=== PATIENT | male | born 1950 | race Caucasian/White ===

== ENCOUNTER 2017-07-04 19:07 | Emergency (ER) | payer MEDICARE, OTHER ==
[2015-03-31 18:11] VITALS: BMI 26.9
[~2017-07-04 19:07] MED LIST: ASPIRIN325 MG PO; ATACAND16 MG PO; DEXILANT60 MG PO; GLUCOPHAGE500 MG PO; HYDROCHLOROTHIA25 MG PO; IMDUR30 MG PO; LANTUS INSULIN10 ML SC; LIPITOR80 MG PO; SORINE80 MG PO
== END 2017-07-04 21:18 | disposition left against medical advice (07) ==
LOC: D.ER 19:07
DX: I10 Essential (primary) hypertension (principal)

== ENCOUNTER 2017-07-13 10:43 | Outpatient (CLI) | payer MEDICARE, OTHER ==
[~2017-07-13] VITALS: Ht 185.4 cm; Wt 94.1 kg
--- NOTE | ~2017-07-13 | HEMODYNAMI ---
PATIENT:OSMANY GALVEZ MEDICAL RECORD: [id number] : 48 LOCATION:[facility] ADMISSION DATE: 07/13/17 Generatedon:07/13/201713:55 Patient name: OSMANY GALVEZ Patient #: [id number] SSN: DO B: 1950 Date of study: 07/13/2017 Page: Of Hemodynamic Procedure Report Patient Data Patient Demographics Procedure consent was obtained First Name: OSMANY Gender: Male Last Name: LEONOR : 1950 [facility] Initial: C Age: 67 year(s) Patient #: [id number] Race: Unknown Additional ID: [id number] Contact details Address: [address] [place] [address] State: [place] City: [place] Zip code: [address] Admission Admission Data Admission Date: 07/13/2017 Admission Time: 10:43 Arrival Date: 07/13/2017 Arrival Time: 13:00 Admit Source: Other Insurance Payor: Medicare Height (in.): 73 BSA: 2.2 (m2) Height (cm.): 185.42 BMI: 27.84 (kg/m2) Weight (lbs.): 211 Weight (kg.): 95.71 Procedure Procedure Types Cath Procedure Diagnostic Procedure LHC LHC w/Coronaries w/Grafts PCI Procedure Coronary Stent Coronary Stent Initial Miscellaneous Procedures Moderate Sedation up to 30 minutes Procedure Description Procedure Date Procedure Date: 07/13/2017 Procedure Start Time: 13:27 Procedure End Time: 13:50 Procedure Staff Name Function Sánchez Zuniga MD Performing Physician Olivia Alatorre RT Monitor Shellie Mcintyre RT Scrub Isaac Wong RN Nurse Procedure Data Cath Procedure Fluoroscopy Diagnostic fluoroscopy Total fluoroscopy Time: 4.9 time: 4.9 min min Diagnostic fluoroscopy Total fluoroscopy dose: dose: 1101 mGy 1101 mGy Contrast Material Contrast Material Type Amount (ml) Isovue 300 123 Entry Location Entry Primary Successful Side Size Upsize Upsize Entry Closure Succes sful Closure Location (Fr) 1 (Fr) 2 (Fr) Remarks Device Remarks Femoral Right 5 Fr 6 Fr Exoseal artery Short Estimated blood loss: 5 ml Diagnostic catheters Device Type Used For End Catheter Placement MULTIPACK JL 4.0 5Fr Left Coronary catheter Angiography MULTIPACK 3DRC 5Fr Multi-vessel catheter Angiography MULTIPACK Pigtail 5 Fr LV Angiography catheter Procedure Complications No complications Procedure Medications Medication Administration Route Dosage 0.9% NaCl I.V. 100 ml/hr Oxygen NC 2 l/min Heparin Flush Bag added to field 2 bags (1000units/500ml NS) Lidocaine 2% added to field 20 Benadryl I.V. 50 mg Versed I.V. 1 mg Fentanyl I.V. 50 mcg Fentanyl I.V. 50 mcg Versed I.V. 1 mg Heparin Bolus I.V. 5000 units Integrilin (Bolus I.V. 8.5 ml 2mg/ml) Integrilin (Bolus wasted 1.5 ml 2mg/ml) Brilinta P.O. 180 mg Hemodynamics Rest BSA: 2.2 (m2) O2 Consumption: Estimated: 245.08 (ml/min) O2 Consumption indexed: Estimated:111.4 (ml/min/m) Heart Rate: 58 (bpm) Pressure Samples Time Site Value (mmHg) Purpose Heart Use Rate(bpm) 13:34 LV 122/5,17 Snapshot 65 Gradients Valve Time Site Site Mean SEP/DFP Peak To Heart Use 1 2 (mmHg) (sec/min) Peak Rate (mmHg) (bpm) Aortic 13:34 LV AO 65 Snapshots Pre Cath Intra NCS Post Cath Vital Signs Time Heart Resp SPO2 etCO2 NIBP (mmHg) Rhythm Pain Sedation Rate (ipm) (%) (mmHg) Status Level (bpm) 13:15:38 57 18 98 37.1 184/95(167) NSR 0 (11) 10(A) , No pain 13:20:28 54 18 100 31.8 175/88(149) NSR 0 (11) 10(A) , No pain 13:25:52 54 16 98 38.6 152/88(110) NSR 0 (11) 10(A) , No pain 13:30:29 55 19 99 0 132/89(123) NSR 0 (11) 10(A) , No pain 13:35:11 65 18 97 40.9 143/74(101) NSR 0 (11) 9(A) , No pain 13:39:54 63 19 98 40.9 135/75(110) NSR 0 (11) 9(A) , No pain 13:44:37 67 14 98 10.6 131/80(114) NSR 0 (11) 10(A) , No pain 13:49:36 67 12 99 38.6 Measuring NSR 0 (11) 10(A) , No pain 13:50:10 66 12 99 31.1 160/81(128) NSR 0 (11) 10(A) , No pain Medications Time Medication Route Dose Verified Delivered Reason Notes Effectiveness by by 13:21:21 0.9% NaCl I.V. 100 Isaac Isaac Per physician ml/hr Judith Wong RN RN 13:21:32 Oxygen NC 2 Isaac Isaac Per physician l/min Judith Wong RN RN 13:21:47 Heparin Flush added 2 Isaac Isaac used for Bag to bags Judith Wong procedure (1000units/500ml field WALL RN NS) 13:22:04 Lidocaine 2% added 20ml Isaac Isaac for local to vial Lorblanche Wong anesthetic RN RN 13:22:14 Benadryl I.V. 50 mg Isaac Isaac Per physician Judith Wong RN RN 13:24:54 Versed I.V. 1 mg Isaac Isaac for sedation Judith Wong RN RN 13:25:03 Fentanyl I.V. 50 Isaac Isaac for sedation mcg Judith Wong RN RN 13:28:18 Fentanyl I.V. 50 Isaac Isaac for sedation mcg Judith Wong RN RN 13:28:26 Versed I.V. 1 mg Isaac Isaac for sedation Judith Wong RN RN 13:38:50 Heparin Bolus I.V. 5000 Isaac Isaac for units Judith Wong anticoagulation RN RN 13:39:05 Integrilin I.V. 8.5 Isaac Isaac for (Bolus 2mg/ml) ml Judith Wong antiplatelet RN RN therapy 13:39:19 Integrilin wasted 1.5 Isaac Isaac to sharp's (Bolus 2mg/ml) ml Judith Wong RN RN 13:46:55 Brilinta P.O. 180 Isaac Isaac for mg Judith Wong antiplatelet RN RN therapy Procedure Log Time Note 12:56:55 Shellie Counts RT(R) sent for patient. Start room use. 12:56:55 Time tracking: Regular hours 12:56:59 Plan of Care:Hemodynamics will remain stable., Cardiac rhythm will remain stable., Comfort level will be maintained., Respiratory function will remain adequate., Patient/ family verbilizes understanding of procedure., Procedure tolerated without complication., Recovers from procedure without complications.. 12:57:35 Procedure type changed to Cath procedure, Diagnostic procedure, LHC, LHC w/Coronaries w/Grafts, PCI procedure, Coronary Stent, Coronary Stent Initial, Miscellaneous Procedures, Moderate Sedation up to 30 minutes 13:08:34 Diagnostic Cath Status : Elective 13:09:30 Admit Source: Other 13:09:33 Patient Height : 73 inches 13:09:42 Patient Weight : 211 lbs 13:09:42 Insurance Payor : Medicare 13:09:49 Arrival Date: 07/13/2017 1:00:00 PM 13:10:06 Patient received from Pre/Post Procedure Room to CCL 1 Alert and oriented. Tansferred to table in Supine position. 13:10:07 Warm blankets applied, and mariza hugger turned on for patient comfort. 13:10:08 Correct patient and procedure confirmed by team. 13:10:09 Signed procedure consent form obtained from patient. 13:13:56 ECG and BP/O2 sat monitors applied to patient. 13:13:57 Vital chart was started 13:16:50 Baseline sample Acquired. 13:16:58 Full Disclosure recording started 13:17:49 H&P Date Dictated: 07/10/2017 Within 30 days and on chart., H&P Addendum completed by physician on day of procedure. (MUST COMPLETE FOR ALL OUTPATIENTS). 13:17:51 Pre-procedure instructions explained to patient. 13:17:51 Pre-op teaching completed and patient verbalized understanding. 13:17:52 Family in waiting room. 13:17:54 Patient NPO since Midnight. 13:18:04 Is the patient allergic to Iodine/contrast media? No. 13:18:07 Was the patient premedicated? No 13:18:09 Is patient on blood thinner?No 13:18:11 Patient diabetic? Yes. 13:18:12 If diabetic: On Metformin? Yes 13:20:34 If on Metformin: Last Dose? 07/11/2017 13:20:37 Previous problem with sedation/anesthesia? No ? 13:20:40 Snore? No 13:20:40 Sleep apnea? No 13:20:41 Deviated septum? No 13:20:42 Opens mouth fully? Yes 13:20:43 Sticks out tongue? Yes 13:20:44 Airway obstruction? No ? 13:20:49 Dentures? Yes out 13:20:52 Pre procedure: right dorsailis pedis pulse 2+ Normal; easily identifiable; not easily obliterated 13:20:55 Pre procedure: left dorsailis pedis pulse 2+ Normal; easily identifiable; not easily obliterated 13:20:57 Patient pain scale 0/10 ?. 13:21:04 IV patent on arrival in left forearm with 0.9% NaCl at [facility]. 13:21:08 Lab results completed and on chart. 13:21:12 Right groin area was prepped with chlora-prep and draped in sterile fashion 13:21:13 Alarms reviewed by R. N. 13:21:14 Sharps counted by scrub and verified by R.N. 13:21:16 Physician arrived 13:21:16 --------ALL STOP TIME OUT------ 13:21:16 Final Timeout: patient, procedure, and site verified with staff and physician. All members of the team are in agreement. 13:21:18 Right groin site verified by team. 13:21:20 Physical assessment completed. ASA score P 2 - A patient with mild systemic disease as per Sánchez Zuniga MD. 13:21:21 0.9% NaCl 100 ml/hr I.V. was administered by Isaac Wong RN; Per physician; 13:21:24 Sedation plan: IV Moderate Sedation Medication:Versed, Fentanyl 13:21:32 Oxygen 2 l/min NC was administered by Isaac Wong RN; Per physician; 13:21:36 Use device set Femoral Dx 13:21:37 ACIST Syringe (19576) opened to sterile field. 13:21:38 Bag Decanter (2002S) opened to sterile field. 13:21:38 Medline Cath Pack ([id number]) opened to sterile field. 13:21:39 SHEATH 5FR [place] (KTL176) opened to sterile field. 13:21:39 DIAGNOSTIC WIRE .035 260cm J wire (773149) opened to sterile field. 13:21:40 ACIST Hand Control (90403) opened to sterile field. 13:21:41 ACIST Manifold (38727) opened to sterile field. 13:21:41 DIAGNOSTIC Multipack 5Fr catheter set (HK9062) opened to sterile field. 13:21:42 Tegaderm 4 x 4 (1626W) opened to sterile field. 13:21:47 Heparin Flush Bag (1000units/500ml NS) 2 bags added to field was administered by Isaac Wong RN; used for procedure; 13:22:04 Lidocaine 2% 20ml vial added to field was administered by Isaac Wong RN; for local anesthetic; 13:22:14 Benadryl 50 mg I.V. was administered by Isaac Wong RN; Per physician; 13:24:54 Versed 1 mg I.V. was administered by Isaac Wong RN; for sedation; 13:24:57 Zero performed for pressure channel P1 13:25:03 Fentanyl 50 mcg I.V. was administered by Isaac Wong RN; for sedation; 13:27:54 Procedure started. 13:27:57 Local anesthetic to right femoral artery with Lidocaine 2% by Sánchez Zuniga MD.INITIAL ACCESS ONLY 13:28:07 A 5 Fr sheath was inserted into the Right Femoral artery 13:28:18 Fentanyl 50 mcg I.V. was administered by Isaac Wong RN; for sedation; 13:28:26 Versed 1 mg I.V. was administered by Isaac Wong RN; for sedation; 13:28:43 A MULTIPACK JL 4.0 5Fr catheter was advanced over the wire and used for Left Coronary Angiography. 13:28:52 Baseline sample Acquired. 13:29:17 LCA angiography performed. 13:29:20 Injector settings: Ml/sec: 3, Volume: 6, 13:31:14 Catheter removed. 13:31:19 A MULTIPACK 3DRC 5Fr catheter was advanced over the wire and used for Multi-vessel Angiography. 13:31:42 RCA angiography performed. 13:32:11 SVG to RCA angiography performed. 13:32:51 SCOTT angiography performed. 13:33:59 Catheter removed. 13:34:19 A MULTIPACK Pigtail 5 Fr catheter was advanced over the wire and used for LV Angiography. 13:34:30 LV hemodynamics recorded. 13:34:31 LV gram done using REDDY 13:34:34 Injector settings: Ml/sec: 5, Volume: 15, 13:34:47 EF : 50 % 13:34:52 Catheter removed. 13:34:53 Proceeding to intervention. 13:35:19 WHISPER 300cm guide wire ([id number]) opened to sterile field. 13:35:20 INFLATOR Merit BasixCompak (QH0483) opened to sterile field. 13:35:20 SHEATH 6FR [place] (IMY416) opened to sterile field. 13:35:29 Sheath upsized to a 6 Fr Short. 13:37:15 GUIDE 6FR EBU 3.5 catheter ([id number]) opened to sterile field. 13:37:44 6 Fr ebu 3.5 guide catheter was inserted over the wire 13:38:50 Heparin Bolus 5000 units I.V. was administered by Isaac Wong RN; for anticoagulation; 13:39:05 Integrilin (Bolus 2mg/ml) 8.5 ml I.V. was administered by Isaac Wong RN; for antiplatelet therapy; 13:39:19 Integrilin (Bolus 2mg/ml) 1.5 ml wasted was administered by Isaac Wong RN; to sharp's; 13:39:49 whisper wire advanced. 13:39:55 Wire advanced across lesion. 13:41:07 Inflation Number: 1 A YADIEL OTW 3.0 x 15 stent ([id number]) was prepped and advanced across the Mid CX. The stent was deployed at 12 TONI for 0:30 (min:sec). 13:41:24 Stent catheter was removed intact over wire. 13:44:00 Inflation Number: 2 A YADIEL OTW 3.0 x 12 stent ([id number]) was prepped and advanced across the Mid CX. The stent was deployed at 14 TONI for 0:30 (min:sec). 13:45:14 Inflation number: 1 The stent balloon was then re-inflated across the Dist CX to 6 TONI for 0:30 (min:sec). 13:46:49 Stent catheter was removed intact over wire. 13:46:50 Wire removed. 13:46:50 Guide catheter removed. 13:46:55 Brilinta 180 mg P.O. was administered by Isaac Wong RN; for antiplatelet therapy; 13:47:52 EXOSEAL 6Fr (EX600) opened to sterile field. 13:48:03 Sheath removed intact; hemostasis achieved with Exoseal to the Right Femoral artery. 13:48:06 Procedure ended.(Physican Out) 13:48:41 Fluoroscopy time 04.90 minutes. 13:48:48 Fluoroscopy dose: 1101 mGy 13:48:48 Flurop Dose total: 1101 13:48:56 Contrast amount:Isovue 300 123ml. 13:48:58 Sharps counted by scrub and verified by R.N. 13:49:03 Insertion/operative site no bleeding no hematoma. 13:49:20 Post-op/insertion site Right Femoral artery dressed using a 4 x 4 and Tegaderm. 13:49:23 Post Procedure Pulses reassessed and unchanged 13:49:28 Post procedure rhythm: unchanged. 13:49:30 Estimated blood loss: 5 ml 13:49:35 Post procedure instruction explained to patient.Patient verbalizes understanding. 13:49:36 Patient needs reinforcement of post procedure teaching. 13:49:40 Procedure and supply charges have been captured, reviewed, submitted and are correct. 13:49:45 Procedure Complication : No complications 13:49:48 Vital chart was stopped 13:50:18 See physician's report for complete and final results. 13:50:49 Report given to Pre/Post Procedure Room. 13:50:52 Patient transfered to Pre/Post Procedure Room with Stretcher. 13:50:54 Procedure ended. 13:50:54 Full Disclosure recording stopped 13:51:04 ACC-PCI Only Patient was given prescriptions, or instructed by Sánchez Zuniga MD to start/continue the following medications upon discharge: Plavix 13:51:46 End room use (Document Last) Intervention Summary Intervention Notes Time ActionType Lesion and Equipment Action# Pressure Duration Attributes Used 13:41:07 Place stent Mid CX YADIEL OTW 3.0 1 12 00:30 x 15 stent ([id number]) 13:44:00 Place stent Mid CX YADIEL OTW 3.0 2 14 00:30 x 12 stent ([id number]) 13:45:14 Reinflate Dist CX YADIEL OTW 3.0 1 6 00:30 stent x 12 stent balloon ([id number]) Device Usage Item Name Manufacture Quantity Catalog Hospital Part Current Minim al Lot# / Number Charge Number Stock Stock Serial# Code ACIST Syringe Acist 1 83403 377239 502526 078538 20 (42239) Medical Systems Inc Bag Decanter Microtek 1 2001S 495328 44793 113408 5 () Medical Inc. Medline Cath Cardinal 1 [id number] 627586 84939 360601 5 Pack Health ([id number]) SHEATH 5FR Terumo 1 EMY918 612249 708858 511345 40 [place] (NWZ910) DIAGNOSTIC St Basilio 1 555846 939843 607214 005786 30 WIRE .035 260cm J wire (521225) ACIST Hand Acist 1 61409 887901 027744 773274 5 Control Medical (38182) Systems Inc ACIST Acist 1 99713 261779 289314 997747 5 Manifold Medical (60634) Systems Inc DIAGNOSTIC Cardinal 1 AB4376 421506 19494 092893 30 Multipack 5Fr Health catheter set (MI1194) Tegaderm 4 x 3M 1 1626W 363412 441729 073521 5 4 (1626W) MULTIPACK JL Cardinal 1 957454 5 4.0 5Fr Health catheter MULTIPACK Cardinal 1 712486 5 3DRC 5Fr Health catheter MULTIPACK Cardinal 1 227930 5 Pigtail 5 Fr Health catheter WHISPER 300cm Ramirez 1 [id number] 845642 210831 808386 5 guide wire Vascular ([id number]) INFLATOR Merit 1 AR3268 532621 496918 383859 15 Pikimal Medical BasixCompak (HF5163) SHEATH 6FR Terumo 1 XMC273 224782 324543 542430 40 [place] (TOP246) GUIDE 6FR EBU Medtronic 1 [id number] 587486 47604 242618 3 3.5 catheter (UV3XVN81) YADIEL OTW 3.0 Medtronic 1 [id number] 183676 394410 990897 5 [id number] x 15 stent ([id number]) YADIEL OTW 3.0 Medtronic 1 [id number] 909707 948486 763333 5 [id number] x 12 stent ([id number]) EXOSEAL 6Fr Cardinal 1 EX600 303859 659852 520590 10 (EX600) Health Signature Audit [place] Stage Time Signature Unsigned Intra-Procedure 07/13/2017 Olivia Alatorre 1:55:15 PM RT(R) Signatures Monitor : Olivia Alatorre RT Signature : Date : Time : [id number] [place] [address]
--- NOTE | ~2017-07-13 | OP ---
PATIENT NAME: OSMANY GALVEZ MEDICAL RECORD: [id number] :48 LOCATION:[facility] ADMISSION DATE: SURGEON: DANIEL COOPER MD DATE OF OPERATION: 07/13/2017 PROCEDURE: Left heart catheterization, selective coronary angiography, right femoral artery approach. CATHETERS: A 5-Tajik sheath, 5/4 left and right Adarsh, 5/4 pig. The procedure was well tolerated. The patient returned to the moore, sheath removed. ExoSeal device placed. Left ventriculography in 30-degree REDDY view: Normal wall motion, normal systolic function. CORONARY ANATOMY: 1. LEFT MAIN: Left main is free of disease. 2. LAD: Fills for a short period of time then is totally occluded. 3. CIRCUMFLEX: Area of previous stenting distally has about 80% stenosis more proximally before the takeoff of the AV groove. Circumflex has a new 80% stenosis. 4. RIGHT CORONARY ARTERY: Totally occluded in its midportion. BYPASS GRAFTS: 1. SCOTT to LAD widely patent throughout its course without evidence of post-anastomotic stenosis. 2. Saphenous vein graft to the right is widely patent throughout its course without evidence of in-stent restenosis, post-anastomotic stenosis. PLAN: Intervention of circumflex momentarily. DESCRIPTION OF PROCEDURE: A 5-Tajik sheath was exchanged for a 6-Tajik sheath. EBU 3.5 guiding catheter, good guide catheter support followed by a 300 cm Whisper wire was placed across both areas in the circumflex down the distal portion of vessel. Initial stent deployed distally was 3.0 x 15 mm [place] drug-eluting stent, proximally 3.0 x 12 mm [place] drug-eluting stent was placed, inflated to 14 atmospheres. Final angiography shows excellent resolution of both 80% lesions, no significant residual. SVETLANA flow was 3 throughout the procedure. Brilinta was loaded in the lab. Sheath was closed with ExoSeal device. TRANSINT:[id number] Voice Confirmation ID: [id number] DOCUMENT ID: [id number] DANIEL COOPER MD at 1347 CC: [id number] DICTATION DATE: 07/13/17 1358 BOOTMAKER: 07/13/17 1451 DEP CLI 07/13/17 [place] [address]
[2017-07-13] MEDS ORDERED: OMEPRAZOLE20 M1 PO (11:02)
[2017-07-13] MEDS ORDERED: CARDURA4 MG PO (11:03)
[2017-07-13 11:20] VITALS: Ht 185.4 cm; Wt 94.1 kg
[2017-07-13 11:28] LABS: BASOPHILS 0.6 % (0-2); EOSINOPHILS 1.8 % (0-7); HEMATOCRIT 41.9 % (42.0-54.0); HEMOGLOBIN 14.5 g/dL (13.5-17.5); IMMATURE GRANULOCYTES 0.4 % (0-5); LYMPHOCYTES 25.2 % (15-50); MCH 30.5 pg (26.0-34.0); MCHC 34.6 g/dL (31.0-37.0); MCV 88.2 fL (80.0-100.0); MONOCYTES 9.5 % (2-11); NEUTROPHILS 62.5 % (40-80); PLATELET COUNT 139 10x3/uL (130-400); RBC 4.75 10x6/uL (4.20-6.10); RDW 13.1 % (11.5-14.5); WBC 7.2 10x3/uL (4.8-10.8)
[2017-07-13 11:36] LABS: ANION GAP 11.1 mmol/L (8-16); CALCIUM 8.5 mg/dL (8.5-10.1); CARBON DIOXIDE 29.5 mmol/L (21.0-32.0); CREATININE - SERUM 1.3 mg/dL (0.6-1.3); POTASSIUM - SERUM 4.6 mmol/L (3.5-5.1)
[2017-07-13] MEDS ORDERED: BRILINTA90 MG PO (13:59)
[2017-07-13] MEDS ORDERED: PLAVIX75 MG PO (15:17)
== END 2017-07-13 17:55 | disposition home or self-care (01) ==
LOC: D.CATH 10:43
PROVIDERS: Internal Medicine Interventional Cardiology
DX: I25.119 Atherosclerotic heart disease of native coronary artery with unspecified angina pectoris (principal); Z95.1 Presence of aortocoronary bypass graft; Z01.812 Encounter for preprocedural laboratory examination
CPT/HCPCS: 93459; C9600

== ENCOUNTER 2018-08-12 05:34 | Observation (INO) | payer MEDICARE, BC ==
[~2018-08-12] VITALS: Ht 185.4 cm; Wt 92.7 kg
[2018-08-12] VITALS (7 sets, daily range): BP systolic 133–192; BP diastolic 74–94; Ht 185.4 cm; Wt 92.7 kg
--- NOTE | ~2018-08-12 | HEMODYNAMI ---
PATIENT:OSMANY GALVEZ MEDICAL RECORD: [id number] : 48 LOCATION:[address]# [id number] ADMISSION DATE: 08/12/18 Generatedon:08/12/201811:04 Patient name: OSMANY GALVEZ Patient #: [id number] SSN: DO B: 1950 Date of study: 08/12/2018 Page: Of Hemodynamic Procedure Report Patient Data Patient Demographics Procedure consent was obtained First Name: OSMANY Gender: Male Last Name: LEONOR : 1950 Middle Initial: C Age: 68 year(s) Patient #: [id number] Race: Unknown Additional ID: [id number] Contact details Address: [address] [place] [address] State: [place] City: [place] Zip code: [address] Admission Admission Data Admission Date: 08/12/2018 Admission Time: 7:34 Room #: D.2112 Lab Results Lab Result Date: 08/12/2018 Lab Result Time: 0:00 Biochemistry Name Units Result Min Max BUN mg/dl 17 --(---*)-- 7 18 Creatinine mg/dl 1.3 --(---*)-- 0.6 1.3 CBC Name Units Result Min Max Hemoglobin g/dl 13.5 --(*---)-- 13.5 17.5 Procedure Procedure Types Cath Procedure Diagnostic Procedure LHC LHC w/Coronaries w/Grafts Sedation Charges Moderate Sedation up to 30 minutes PCI Procedure Coronary Stent Coronary Stent Initial Procedure Description Procedure Date Procedure Date: 08/12/2018 Procedure Start Time: 10:21 Procedure End Time: 11:00 Procedure Staff Name Function Tj Meneses MD Performing Physician Shantell Erwin RT Monitor Olivia Alatorre RT Scrub Michelle Lewis RN Nurse Procedure Data Cath Procedure Fluoroscopy Diagnostic fluoroscopy Total fluoroscopy Time: 7.4 time: 7.4 min min Diagnostic fluoroscopy Total fluoroscopy dose: dose: 12705 mGy 52958 mGy Contrast Material Contrast Material Type Amount (ml) Isovue 300 137 Entry Location Entry Primary Successful Side Size Upsize Upsize Entry Closure Succes sful Closure Location (Fr) 1 (Fr) 2 (Fr) Remarks Device Remarks Femoral Right 5 Fr 6 Fr Exoseal artery Short Estimated blood loss: 10 ml Diagnostic catheters Device Type Used For End Catheter Placement MULTIPACK JL 4.0 5Fr Procedure catheter MULTIPACK 3DRC 5Fr Procedure catheter DIAGNOSTIC AR MOD 5Fr Procedure Catheter ([id number]) DIAGNOSTIC IMT 5Fr Procedure Catheter ([id number]) MULTIPACK Pigtail 5 Fr Procedure catheter Procedure Complications No complications Procedure Medications Medication Administration Route Dosage Oxygen etCO2 Nasal cannula 2 l/min Lidocaine 2% added to field 20 Heparin Flush Bag added to field 2 bags (1000units/500ml NS) 0.9% NaCl I.V. 100 ml/hr Versed I.V. 1 mg Fentanyl I.V. 50 mcg Versed I.V. 1 mg Fentanyl I.V. 50 mcg Versed I.V. 1 mg Fentanyl I.V. 50 mcg Versed I.V. 1 mg Fentanyl I.V. 50 mcg Heparin Bolus I.V. 9500 units Nitroglycerin IC/IA I.C. 100 mcg Plavix P.O. 600 mg Hemodynamics Rest HGB: 13.5 (g/dl) Heart Rate: 63 (bpm) Pressure Samples Time Site Value (mmHg) Purpose Heart Use Rate(bpm) 10:34 LV 108/12,19 Snapshot 61 10:35 AO 122/58(86) Pullback 60 10:35 LV 127/9,18 Pullback 60 Gradients Valve Time Site 1 Site 2 Mean SEP/DFP Peak To Heart Use (mmHg) (sec/min) Peak Rate (mmHg) (bpm) Aortic 10:35 LV AO 9 14 5 60 127/9,18 122/58(86) Calculations Valve P-P Mean Valve Index Valve Source Name Gradient Area Flow (cm2) Aortic 5 9 5 9 Snapshots Pre Cath Intra NCS Post Cath Vital Signs Time Heart Resp SPO2 etCO2 NIBP (mmHg) Rhythm Pain Sedation Rate (ipm) (%) (mmHg) Status Level (bpm) 10:12:32 50 14 99 23.8 180/91(143) NSR 0 (11) 10(A) , No pain 10:15:57 49 15 94 28.3 146/92(121) NSR 0 (11) 10(A) , No pain 10:20:17 53 14 95 40.2 138/93(122) NSR 0 (11) 9(A) , No pain 10:25:10 60 13 92 44.7 162/87(116) NSR 0 (11) 9(A) , No pain 10:29:31 58 14 94 45.5 147/80(131) NSR 0 (11) 9(A) , No pain 10:33:55 60 15 95 44 142/74(105) NSR 0 (11) 9(A) , No pain 10:38:13 58 13 95 38.8 132/75(106) NSR 0 (11) 9(A) , No pain 10:42:31 58 14 96 37.2 129/71(111) NSR 0 (11) 9(A) , No pain 10:47:58 61 14 96 36.5 122/71(93) NSR 0 (11) 9(A) , No pain 10:52:16 57 15 96 35.8 133/69(104) NSR 0 (11) 9(A) , No pain 10:56:39 58 15 95 34.3 119/67(89) NSR 0 (11) 9(A) , No pain 11:01:52 62 16 98 35 176/97(138) NSR 0 (11) 10(A) , No pain Medications Time Medication Route Dose Verified Delivered Reason Notes Effectiveness by by 10:14:21 Oxygen etCO2 2 Tj Buffie used for Nasal l/min Marcelino Lewis RN procedure cannula 10:14:27 Lidocaine 2% added 20ml Tj Tj for local to vial Marcelino Meneses MD anesthetic field 10:14:32 Heparin Flush added 2 Tj Tj used for Bag to bags Marcelino Meneses MD procedure (1000units/500ml field NS) 10:14:40 0.9% NaCl I.V. 100 Tj Buffie Per physician ml/hr Marcelino Lewis RN 10:14:56 Versed I.V. 1 mg Tj Buffie for sedation Marcelino Lewis RN 10:15:01 Fentanyl I.V. 50 Tj Buffie for sedation mcg Marcelino Lewis RN 10:22:43 Versed I.V. 1 mg Tj Buffie for sedation Marcelino Lewis RN 10:22:47 Fentanyl I.V. 50 Tj Buffie for sedation mcg Marcelino Lweis RN 10:27:08 Versed I.V. 1 mg Tj Buffie for sedation Marcelino Lewis RN 10:27:12 Fentanyl I.V. 50 Tj Buffie for sedation mcg Marcelino Lewis RN 10:31:44 Versed I.V. 1 mg Tj Buffie for sedation Marcelino Lewis RN 10:31:48 Fentanyl I.V. 50 Tj Buffie for sedation mcg Marcelino Lewis RN 10:39:41 Heparin Bolus I.V. 9500 Tj Buffie for verif ied units Marcelino Lewis RN anticoagulation with dr meneses 10:53:07 Nitroglycerin I.C. 100 Tj Tj for IC/IA mcg Marcelino hobson 11:02:41 Plavix P.O. 600 Tj Buffie for mg Marcelino Lewis RN antiplatelet therapy Procedure Log Time Note 9:43:37 Michelle Lewis RN sent for patient. Start room use. 9:43:38 Time tracking: Regular hours (M-F 7:00 - 5:00) 9:43:42 Plan of Care:Hemodynamics will remain stable., Cardiac rhythm will remain stable., Comfort level will be maintained., Respiratory function will remain adequate., Patient/ family verbilizes understanding of procedure., Procedure tolerated without complication., Recovers from procedure without complications.. 9:59:02 Patient received from Med II to CCL 1 Alert and oriented. Tansferred to table in Supine position. 10:07:21 Warm blankets applied, and mariza hugger turned on for patient comfort. 10:07:21 Correct patient and procedure confirmed by team. 10:07:23 Signed procedure consent form obtained from patient. 10:07:24 ECG and BP/O2 sat monitors applied to patient. 10:07:24 Vital chart was started 10:07:25 Baseline sample Acquired. 10:07:28 Rhythm: sinus rhythm 10:07:30 Full Disclosure recording started 10:07:35 H&P Date Dictated: 08/12/2018 New H&P dictated by physician.. 10:07:37 Pre-procedure instructions explained to patient. 10:07:37 Pre-op teaching completed and patient verbalized understanding. 10:07:39 Family in patients room. 10:07:40 Patient NPO since Midnight. 10:07:43 Is the patient allergic to Iodine/contrast media? No. 10:07:44 Was the patient premedicated? No 10:11:17 Is patient on blood thinner?No 10:11:19 Patient diabetic? Yes. 10:11:20 If diabetic: On Metformin? Yes 10:11:23 If on Metformin: Last Dose? 08/11/2018 10:11:32 Snore? Yes 10:11:34 Sleep apnea? No 10:11:42 Dentures? Yes out 10:11:55 IV patent on arrival in left forearm with 0.9% NaCl at [facility]. 10:12:17 Lab Result : BUN 17 mg/dl 10:12:17 Lab Result : Hemoglobin 13.5 g/dl 10:12:17 Lab Result : Creatinine 1.3 mg/dl 10:12:22 Lab results completed and on chart. 10:12:28 Right groin area was prepped with chlora-prep and draped in sterile fashion 10:12:29 Alarms reviewed by R. N. 10:12:30 Sharps counted by scrub and verified by R.N. 10:12:31 Physician arrived 10:12:32 --------ALL STOP TIME OUT------ 10:12:33 Final Timeout: patient, procedure, and site verified with staff and physician. All members of the team are in agreement. 10:12:36 Right groin site verified by team. 10:12:45 Fire Safety Assessment: A--An alcohol-based skin anteseptic being used preoperatively., C--Open oxygen or nitrous oxide is being used., D--An ESU, laser, or fiber-optic light is being used. 10:12:50 Physical assessment completed. ASA score P 2 - A patient with mild systemic disease as per Tj Meneses MD. 10:12:55 Sedation plan: IV Moderate Sedation Medication:Versed, Fentanyl 10:14:21 Oxygen 2 l/min etCO2 Nasal cannula was administered by Michelle Lewis RN; used for procedure; 10:14:27 Lidocaine 2% 20ml vial added to field was administered by Tj Meneses MD; for local anesthetic; 10:14:32 Heparin Flush Bag (1000units/500ml NS) 2 bags added to field was administered by Tj Meneses MD; used for procedure; 10:14:40 0.9% NaCl 100 ml/hr I.V. was administered by Michelle Lewis RN; Per physician; 10:14:56 Versed 1 mg I.V. was administered by Michelle Lewis RN; for sedation; 10:15:00 Use device set Femoral Dx 10:15:01 Fentanyl 50 mcg I.V. was administered by Michelle Lewis RN; for sedation; 10:15:02 ACIST Syringe (94707) opened to sterile field. 10:15:02 Bag Decanter (2002S) opened to sterile field. 10:15:03 Medline Cath Pack ([id number]) opened to sterile field. 10:15:03 DIAGNOSTIC WIRE .035 260cm J wire (854610) opened to sterile field. 10:15:05 ACIST Hand Control (62470) opened to sterile field. 10:15:05 ACIST Manifold (71766) opened to sterile field. 10:15:05 DIAGNOSTIC Multipack 5Fr catheter set (ER1494) opened to sterile field. 10:15:07 Tegaderm 4 x 4 (1626W) opened to sterile field. 10:15:08 SHEATH 5FR Conklin (PUX378) opened to sterile field. 10:21:18 Zero performed for pressure channel P1 10:21:29 Procedure started. 10:21:51 Local anesthetic to right femoral artery with Lidocaine 2% by Tj Meneses MD.INITIAL ACCESS ONLY 10:22:05 A 5 Fr sheath was inserted into the Right Femoral artery 10::43 Versed 1 mg I.V. was administered by Michelle Lewis RN; for sedation; 10::47 Fentanyl 50 mcg I.V. was administered by Michelle Lewis RN; for sedation; 10:23:47 A MULTIPACK JL 4.0 5Fr catheter was advanced over the wire and used for Procedure. 10:24:53 LCA angiography performed. 10:24:56 Catheter removed. 10:25:04 A MULTIPACK 3DRC 5Fr catheter was advanced over the wire and used for Procedure. 10:25:39 RCA angiography performed. 10:26:10 Catheter removed. 10:26:59 A DIAGNOSTIC AR MOD 5Fr Catheter (162822T) was advanced over the wire and used for Procedure. 10:27:08 Versed 1 mg I.V. was administered by Michelle Lewis RN; for sedation; 10:27:12 Fentanyl 50 mcg I.V. was administered by Michelle Lewis RN; for sedation; 10:27:15 SVG to RCA angiography performed. 10:31:27 Catheter removed. 10:31:44 Versed 1 mg I.V. was administered by Michelle Lewis RN; for sedation; 10:31:48 Fentanyl 50 mcg I.V. was administered by Michelle Lewis RN; for sedation; 10:32:19 A DIAGNOSTIC IMT 5Fr Catheter ([id number]) was advanced over the wire and used for Procedure. 10:32:33 SCOTT to LAD angiography performed. 10:34:20 Catheter removed. 10:34:28 A MULTIPACK Pigtail 5 Fr catheter was advanced over the wire and used for Procedure. 10:35:09 EF : 50 % 10:36:53 Catheter removed. 10:37:48 Proceeding to intervention. 10:38:05 Sheath upsized to a 6 Fr Short. 10:39:08 GUIDE 6FR XBLAD 3.5 catheter (13080360) opened to sterile field. 10:39:11 TUBING High Pressure Extension Tubing (Marcelino) (NL4595R) opened to sterile field. 10:39:12 INFLATOR Merit BasixCompak (TL7185) opened to sterile field. 10:39:13 BMW 300cm [place] 2 J wire ([id number]) opened to sterile field. 10:39:13 SHEATH 6FR Conklin (VAZ236) opened to sterile field. 10:39:27 6 Fr xblad3.5 guide catheter was inserted over the wire 10:39:41 Heparin Bolus 9500 units I.V. was administered by Michelle Lewis RN; for anticoagulation; verified with dr meneses 10:42:49 bmw wire advanced. 10:46:25 Place stent Inflation Number: 1 A YADIEL RX 3.0 x 18 stent ([id number]) was prepped and advanced across the Mid CX. The stent was deployed at 14 TONI for 0:34 (min:sec). 10:47:40 Stent catheter was removed intact over wire. 10:52:07 Place stent Inflation Number: 1 A YADIEL RX 3.0 x 15 stent ([id number]) was prepped and advanced across the Prox CX. The stent was deployed at 14 TONI for 0:14 (min:sec). 10:52:43 Stent catheter was removed intact over wire. 10:53:07 Nitroglycerin IC/IA 100 mcg I.C. was administered by Tj Meneses MD; for vasodilation; 10:54:33 Wire removed. 10:55:24 Guide catheter removed. 10:56:42 Sheath removed intact; hemostasis achieved with Exoseal to the Right Femoral artery. 10:57:41 Procedure ended.(Physican Out) 10:57:54 Fluoroscopy time 07.40 minutes. 10:57:59 Flurop Dose total: 81384 10:57:59 Fluoroscopy dose: 86278 mGy 10:58:17 Contrast amount:Isovue 300 137ml. 10:58:20 Sharps counted by scrub and verified by R.N. 10:58:22 Insertion/operative site no bleeding no hematoma. 10:58:27 Post-op/insertion site Right Femoral artery dressed using a 4 x 4 and Tegaderm. 10:59:00 Post Procedure Pulses reassessed and unchanged 10:59:08 Post procedure rhythm: unchanged. 10:59:12 Estimated blood loss: 10 ml 10:59:15 Post procedure instruction explained to patient.Patient verbalizes understanding. 10:59:41 Procedure type changed to Cath procedure, Diagnostic procedure, LHC, LHC w/Coronaries w/Grafts, Sedation Charges, Moderate Sedation up to 30 minutes, PCI procedure, Coronary Stent, Coronary Stent Initial 10:59:44 Procedure and supply charges have been captured, reviewed, submitted and are correct. 11:00:14 Procedure Complication : No complications 11:00:17 Vital chart was stopped 11:00:18 See physician's report for complete and final results. 11:00:22 Report given to Med II. 11:00:26 Patient transfered to Med II with Bed. 11:00:29 Procedure ended. 11:00:29 Full Disclosure recording stopped 11:00:40 End room use (Document Last) 11:02:41 Plavix 600 mg P.O. was administered by Michelle Lewis RN; for antiplatelet therapy; Intervention Summary Intervention Notes Time ActionType Lesion and Equipment Used Action# Pressure Duration Attributes 10:46:25 Place stent Mid CX YADIEL RX 3.0 x 1 14 00:34 18 stent ([id number]) 10:52:07 Place stent Prox CX YADIEL RX 3.0 x 1 14 00:14 15 stent ([id number]) Device Usage Item Name Manufacture Quantity Catalog Number Hospital Part Current M inimal Lot# / Charge Number Stock Stock Serial# Code ACIST Syringe Acist 1 56883 031970 988328 614621 2 0 (44484) Medical Systems Inc Bag Decanter Microtek 1 467473 75224 458858 5 () Medical Inc. Medline Cath Medline 1 [id number] 325422 03681 262268 5 Pack ([id number]) DIAGNOSTIC St Basilio 1 073512 237559 529679 920777 3 0 WIRE .035 260cm J wire (476912) ACIST Hand Acist 1 90716 189351 349367 843973 5 Control Medical (85661) Systems Inc ACIST Manifold Acist 1 51602 158915 802788 519952 5 (31734) Medical Systems Inc DIAGNOSTIC Cardinal 1 TW5408 223523 64521 194586 3 0 Multipack 5Fr Health catheter set (YW1782) Tegaderm 4 x 4 3M 1 1626W 581650 454450 738254 5 (1626W) SHEATH 5FR Terumo 1 MGU711 343557 782378 833679 5 Conklin (BVE878) MULTIPACK JL Cardinal 1 239269 5 4.0 5Fr Health catheter MULTIPACK 3DRC Cardinal 1 312536 5 5Fr catheter Health DIAGNOSTIC AR Cardinal 1 616508H 602902 944646 658256 1 5 MOD 5Fr Health Catheter (270961N) DIAGNOSTIC IMT Elkins 1 [id number] 821690 689532 41424 5 5Fr Catheter Scientific (288435942) MULTIPACK Cardinal 1 455226 5 Pigtail 5 Fr Health catheter GUIDE 6FR Cardinal 1 [id number] 646149 406906 230126 1 0 XBLAD 3.5 Health catheter (49987718) TUBING High Merit 1 [id number] 899978 43898 632400 1 0 Pressure Medical Extension Tubing (Meneses) (LF1059C) INFLATOR Merit Merit 1 QQ5531 633198 108645 759819 1 5 [employer] Medical (SB5742) BMW 300cm Ramirez 1 [id number] 758392 011043 025435 5 [place] 2 J Vascular wire (7331089H) SHEATH 6FR Terumo 1 PKV053 075901 549892 252459 4 0 Conklin (PJA968) YADIEL RX 3.0 x Medtronic 1 [id number] 860691 2187279 442935 5 [id number] 18 stent ([id number]) YADIEL RX 3.0 x Medtronic 1 [id number] 999759 5892482 581607 5 [id number] 15 stent ([id number]) Signature Audit Blain Stage Time Signature Unsigned Intra-Procedure 08/12/2018 Shantell Erwin 11:04:02 AM RT(R) Signatures Monitor : Shantell Erwin Signature : RT Date : Time : [place] [id number] [place] [address]
--- NOTE | ~2018-08-12 | HEMODYNAMI ---
PATIENT:OSMANY GALVEZ MEDICAL RECORD: [id number] : 48 LOCATION[id number] ADMISSION DATE: 08/12/18 Generatedon:08/13/201810:33 Patient name: OSMANY GALVEZ Patient #: [id number] SSN: DO B: 1950 Date of study: 08/13/2018 Page: Of Hemodynamic Procedure Report Patient Data Patient Demographics Procedure consent was obtained First Name: OSMANY Gender: Male Last Name: LEONOR : 1950 [facility] Initial: C Age: 68 year(s) Patient #: [id number] Race: Unknown Additional ID: [id number] Contact details [address]: [address] [place] [address] State: [place] City: [place] Zip code: [address] Past Medical History Allergies: No known allergies Admission Admission Data Admission Date: 08/12/2018 Admission Time: 7:34 Room #: D.[id number] Height (in.): 72.83 BSA: 2.16 (m2) Height (cm.): 185 BMI: 26.88 (kg/m2) Weight (lbs.): 202.83 Weight (kg.): 92 Lab Results Lab Result Date: 08/12/2018 Lab Result Time: 0:00 Biochemistry Name Units Result Min Max BUN mg/dl 17 --(---*)-- 7 18 Creatinine mg/dl 1.3 --(---*)-- 0.6 1.3 CBC Name Units Result Min Max Hemoglobin g/dl 13.5 --(*---)-- 13.5 17.5 Procedure Procedure Types Cath Procedure Diagnostic Procedure Sedation Charges PCI Procedure AMI/SVG/RACK PUNCHER PTCA or Stent SVG-BMS/TIMUR Initial Procedure Description Procedure Date Procedure Date: 08/13/2018 Procedure Start Time: 10:15 Procedure End Time: 10:32 Procedure Staff Name Function Tj Benson MD Performing Physician Damian Disla RT Administrative Judge Shantell Erwin RT Monitor Anitra Naik RN Nurse Everardo Gonzalez RT Scrub Procedure Data Cath Procedure Fluoroscopy Diagnostic fluoroscopy Total fluoroscopy Time: 4.6 time: 4.6 min min Diagnostic fluoroscopy Total fluoroscopy dose: 254 dose: 254 mGy mGy Contrast Material Contrast Material Type Amount (ml) Isovue 300 84 Entry Location Entry Primary Successful Side Size Upsize Upsize Entry Closure Succes sful Closure Location (Fr) 1 (Fr) 2 (Fr) Remarks Device Remarks Femoral Left 6 Fr Exoseal artery Short Estimated blood loss: 10 ml Procedure Complications No complications Procedure Medications Medication Administration Route Dosage 0.9% NaCl I.V. 100 ml/hr Oxygen etCO2 Nasal cannula 2 l/min Lidocaine 2% added to field 20 Heparin Flush Bag added to field 2 bags (1000units/500ml NS) Versed I.V. 2 mg Fentanyl I.V. 50 mcg Heparin Bolus I.V. 9300 units Versed I.V. 2 mg Fentanyl I.V. 50 mcg Hemodynamics Rest BSA: 2.16 (m2) HGB: 13.5 (g/dl) O2 Consumption: Estimated: 236.89 (ml/min) O2 Co nsumption indexed: Estimated:109.67 (ml/min/m) Heart Rate: 53 (bpm) Snapshots Pre Cath Intra NCS Post Cath Vital Signs Time Heart Resp SPO2 etCO2 NIBP (mmHg) Rhythm Pain Sedation Rate (ipm) (%) (mmHg) Status Level (bpm) 9:59:39 57 16 97 36 194/97(150) SB 0 (11) 10(A) , No pain 10:04:17 54 15 99 36.4 179/92(147) SB 0 (11) 10(A) , No pain 10:08:37 49 11 98 33 147/86(118) SB 0 (11) 10(A) , No pain 10:13:02 54 10 96 24.2 144/88(126) SB 0 (11) 10(A) , No pain 10:17:24 55 15 96 42.4 138/81(111) SB 0 (11) 9(A) , No pain 10:22:35 55 14 97 40.9 154/72(110) SB 0 (11) 9(A) , No pain 10:27:05 57 15 96 43.2 129/74(101) SB 0 (11) 10(A) , No pain 10:31:22 60 12 96 41.7 145/85(105) SB 0 (11) 10(A) , No pain Medications Time Medication Route Dose Verified Delivered Reason Notes Effectiveness by by 9:57:24 0.9% NaCl I.V. 100 Tj Anitra used for ml/hr Marcelino Naik forestry extension specialist 9:57:31 Oxygen etCO2 2 Tj Anitra used for Nasal l/min Marcelino Naik procedure cannula RN 9:57:37 Lidocaine 2% added 20ml Tj Tj for local to vial Marcelino Benson MD anesthetic field 9:57:42 Heparin Flush added 2 Tj Tj used for Bag to bags Marcelino Benson MD procedure (1000units/500ml field NS) 10:11:24 Versed I.V. 2 mg Tj Anitra for sedation Marcelino Naik RN 10:11:30 Fentanyl I.V. 50 Tj Anitra for sedation mcg Marcelino Naik RN 10:16:33 Versed I.V. 2 mg Tj Anitra for sedation Marcelino Naik RN 10:16:40 Fentanyl I.V. 50 Tj Anitra for sedation mcg Marcelino Naik RN 10:18:51 Heparin Bolus I.V. 9300 Tj Anitra for verif ied units Marcelino Naik anticoagulation with RN Procedure Log Time Note 9:46:37 Patient Height : 72.83 inches 9:46:43 Patient Weight : 202.83 lbs 9:47:36 Diagnostic Cath status Elective 9:47:38 Damian Disla RT(R) sent for patient. Start room use. 9:47:41 Time tracking: Regular hours (M-F 7:00 - 5:00) 9:47:46 Plan of Care:Hemodynamics will remain stable., Cardiac rhythm will remain stable., Comfort level will be maintained., Respiratory function will remain adequate., Patient/ family verbilizes understanding of procedure., Procedure tolerated without complication., Recovers from procedure without complications.. 9:48:37 Patient received from Med II to CCL 3 Alert and oriented. Tansferred to table in Supine position. 9:48:38 Warm blankets applied, and mariza hugger turned on for patient comfort. 9:57:13 Vital chart was started 9:57:24 0.9% NaCl 100 ml/hr I.V. was administered by Anitra Naik RN; used for procedure; 9:57:31 Oxygen 2 l/min etCO2 Nasal cannula was administered by Anitra Naik RN; used for procedure; 9:57:37 Lidocaine 2% 20ml vial added to field was administered by Tj Benson MD; for local anesthetic; 9:57:42 Heparin Flush Bag (1000units/500ml NS) 2 bags added to field was administered by Tj Benson MD; used for procedure; 9:59:38 Correct patient and procedure confirmed by team. 9:59:40 Signed procedure consent form obtained from patient. 9:59:42 ECG and BP/O2 sat monitors applied to patient. 10:03:15 Baseline sample Acquired. 10:03:21 Rhythm: sinus rhythm 10:03:22 Full Disclosure recording started 10:03:33 H&P Date Dictated: 08/12/2018 Within 30 days and on chart.. 10:03:34 Pre-procedure instructions explained to patient. 10:03:36 Family in patients room. 10:03:38 Patient NPO since Midnight. 10:03:47 Patient allergic to No known allergies 10:03:51 Is the patient allergic to Iodine/contrast media? No. 10:03:53 Was the patient premedicated? Yes 10:03:55 Is patient on blood thinner?Yes 10:04:18 ACC The patient was administered the following blood thiners within the last 24 hours: ACCPlavix 10:04:20 Patient diabetic? Yes. 10:04:21 If diabetic: On Metformin? Yes 10:04:28 If on Metformin: Last Dose? 08/11/2018 10:04:36 Snore? Yes 10:04:38 Sleep apnea? No 10:04:53 Dentures? Yes OUT 10:04:59 Patient pain scale 0/10 ?. 10:05:07 IV patent on arrival in right wrist with 0.9% NaCl at [facility]. 10:05:12 Lab results completed and on chart. 10:05:17 Left groin area was prepped with chlora-prep and draped in sterile fashion 10:05:18 Alarms reviewed by R. N. 10:05:18 Sharps counted by scrub and verified by RKishaN. 10:05:20 Physician arrived 10::34 Physician arrived 10::35 --------ALL STOP TIME OUT------ 10::36 Final Timeout: patient, procedure, and site verified with staff and physician. All members of the team are in agreement. 10:11:24 Versed 2 mg I.V. was administered by Anitra Naik RN; for sedation; 10:11:30 Fentanyl 50 mcg I.V. was administered by Anitra Naik RN; for sedation; 10:14:43 Left groin site verified by team. 10:14:49 Fire Safety Assessment: A--An alcohol-based skin anteseptic being used preoperatively., C--Open oxygen or nitrous oxide is being used., D--An ESU, laser, or fiber-optic light is being used. 10:14:54 Physical assessment completed. ASA score P 2 - A patient with mild systemic disease as per Tj Benson MD. 10:14:58 Sedation plan: IV Moderate Sedation Medication:Versed, Fentanyl 10:15:04 Use device set Femoral Dx 10:15:06 Procedure started. 10:15:21 Local anesthetic to left femerol artery with Lidocaine 2% by Tj Benson MD.INITIAL ACCESS ONLY 10:15:22 ACIST Syringe (48429) opened to sterile field. 10:15:23 Bag Decanter (2002S) opened to sterile field. 10:15:23 Medline Cath Pack ([id number]) opened to sterile field. 10:15:24 DIAGNOSTIC WIRE .035 260cm J wire (484998) opened to sterile field. 10:15:25 ACIST Hand Control (65141) opened to sterile field. 10:15:26 ACIST Manifold (66805) opened to sterile field. 10:16:06 SHEATH 6FR Occidental (INQ010) opened to sterile field. 10:16:07 INFLATOR Merit BasixCompak (IE7861) opened to sterile field. 10:16:07 BMW 300cm [place] 2 J wire ([id number]) opened to sterile field. 10:16:08 TUBING High Pressure Extension Tubing (Marcelino) ([id number]) opened to sterile field. 10:16:26 GUIDE 6FR AR 2.0 catheter (GL2YZ71) opened to sterile field. 10:16:33 Versed 2 mg I.V. was administered by Anitra Naik RN; for sedation; 10:16:40 Fentanyl 50 mcg I.V. was administered by Anitra Naik RN; for sedation; 10:16:51 A 6 Fr Short sheath was inserted into the Left Femoral artery 10:17:39 6 Fr ar2 guide catheter was inserted over the wire 10:18:51 Heparin Bolus 9300 units I.V. was administered by Anitra Naik RN; for anticoagulation; verified with 10:19:12 bmw wire advanced. 10:19:25 Wire advanced across lesion. 10:23:15 Place stent Inflation Number: 1 A YADIEL OTW 3.5 x 12 stent ([id number]) was prepped and advanced across the Aorta Right -> Mid RCA. The stent was deployed at 14 TONI for 0:06 (min:sec). 10:23:29 Inflation number: 2 The stent balloon was then re-inflated across the Aorta Right -> Mid RCA to 16 TONI for 0:09 (min:sec). 10:25:53 Stent catheter was removed intact over wire. 10:26:32 Place stent Inflation Number: 1 A YADIEL OTW 3.5 x 15 stent ([id number]) was prepped and advanced across the Aorta Left -> Mid RCA1. The stent was deployed at 16 TONI for 0:11 (min:sec). 10:27:07 EXOSEAL 6Fr (EX600) opened to sterile field. 10:27:18 Stent catheter was removed intact over wire. 10:27:19 Wire removed. 10:27:20 Guide catheter removed. 10:28:28 Sheath removed intact; hemostasis achieved with Exoseal to the Left Femoral artery. 10:28:30 Procedure ended.(Physican Out) 10:29:56 Fluoroscopy time 04.60 minutes. 10:30:01 Fluoroscopy dose: 254 mGy 10:30:01 Flurop Dose total: 254 10:30:06 Contrast amount:Isovue 300 84ml. 10:30:08 Sharps counted by scrub and verified by R.N. 10:30:10 Insertion/operative site no bleeding no hematoma. 10:30:15 Post-op/insertion site Left Femoral artery dressed using a 4 x 4 and Tegaderm. 10:30:17 Post Procedure Pulses reassessed and unchanged 10:30:22 Post-procedure physical assessment completed. ASA score P 2 - A patient with mild systemic disease as per Tj Benson MD. 10:30:27 Post procedure rhythm: unchanged. 10:31:40 Estimated blood loss: 10 ml 10:31:44 Post procedure instruction explained to patient.Patient verbalizes understanding. 10:31:58 Procedure and supply charges have been captured, reviewed, submitted and are correct. 10:32:20 Procedure Complication : No complications 10:32:22 Vital chart was stopped 10:32:23 See physician's report for complete and final results. 10:32:25 Report given to Pre/Post Procedure Room. 10:32:27 Patient transfered to Pre/Post Procedure Room with Stretcher. 10:32:30 Procedure ended. 10:32:30 Full Disclosure recording stopped 10:32:33 End room use (Document Last) Intervention Summary Intervention Notes Time ActionType Lesion and Equipment Action# Pressure Duration Attributes Used 10:23:15 Place stent Aorta Right YADIEL OTW 3.5 1 14 00:06 -> Mid RCA x 12 stent ([id number]) 10:23:29 Reinflate Aorta Right YADIEL OTW 3.5 2 16 00:09 stent -> Mid RCA x 12 stent balloon ([id number]) 10:26:32 Place stent Aorta Left YADIEL OTW 3.5 1 16 00:11 -> Mid RCA1 x 15 stent ([id number]) Device Usage Item Name Manufacture Quantity Catalog Hospital Part Current Mini [facility] Lot# / Number Charge Number Stock Stock Serial# Code ACIST Syringe Acist 1 10611 354072 926380 310685 20 (85001) Medical Systems Inc Bag Decanter Microtek 1 2001S 214018 22266 601664 5 () Medical Inc. Medline Cath Medline 1 [id number] 457003 13680 503300 5 Pack ([id number]) DIAGNOSTIC St Basilio 1 924161 280670 131495 459625 30 WIRE .035 260cm J wire (417891) ACIST Hand Acist 1 82477 077064 583924 576842 5 Control Medical (20227) Systems Inc ACIST Acist 1 01296 604497 107977 585412 5 Manifold Medical (81191) Systems Inc SHEATH 6FR Terumo 1 AFR476 301974 160745 453684 40 Occidental (JRY681) INFLATOR Merit 1 RO5465 327031 047885 904533 15 Merit Medical BasixCompak (JQ4338) BMW 300cm Ramirez 1 [id number] 323006 998436 385518 5 [place] 2 J Vascular wire ([id number]) TUBING High Merit 1 [id number] 465051 37360 259409 10 Pressure Medical Extension Tubing (Benson) (CM3410T) GUIDE 6FR AR Medtronic 1 FY0GS06 436135 00612 743503 1 2.0 catheter (RS2XC69) YADIEL OTW 3.5 Medtronic 1 [id number] 687404 3236971 638244 5 [id number] x 12 stent ([id number]) YADIEL OTW 3.5 Medtronic 1 [id number] 916482 4817282 051486 5 [id number] x 15 stent ([id number]) EXOSEAL 6Fr Cardinal 1 EX600 044322 180123 098442 10 (EX600) Health Signature Audit [place] Stage Time Signature Unsigned Intra-Procedure 08/13/2018 Shantell Erwin 10:33:20 AM RT(R) Signatures Monitor : Shantell Erwin Signature : RT Date : Time : [facility] [address] [place] [address]
[~2018-08-12 05:34] MED LIST changes: +BRILINTA90 MG PO; +CARDURA4 MG PO; -IMDUR30 MG PO; +ISOSORBIDE MONO60 M1 PO; +OMEPRAZOLE20 M1 PO; +PLAVIX75 MG PO
[2018-08-12] MEDS ORDERED: BAYER CHEWABLE81 MG PO (05:45)
[2018-08-12 06:05] LABS: BASOPHILS 0.9 % (0-2); EOSINOPHILS 2.9 % (0-7); HEMATOCRIT 38.4 % (42.0-54.0); HEMOGLOBIN 13.5 g/dL (13.5-17.5); IMMATURE GRANULOCYTES 0.4 % (0-5); LYMPHOCYTES 24.9 % (15-50); MCH 30.3 pg (26.0-34.0); MCHC 35.2 g/dL (31.0-37.0); MCV 86.3 fL (80.0-100.0); MEAN PLATELET VOLUME 11.9 fL (7.4-10.4); NEUTROPHILS 56.9 % (40-80); PLATELET COUNT 120 10x3/uL (130-400); RBC 4.45 10x6/uL (4.20-6.10); RDW 13.2 % (11.5-14.5); WBC 5.6 10x3/uL (4.8-10.8)
[2018-08-12 06:12] LABS: APTT 30.1 SECONDS (22.8-39.4); INR 1.1 (0.85-1.17); PROTIME 13.7 SECONDS (11.6-15.0)
[2018-08-12 06:22] LABS: ALBUMIN 3.4 g/dL (3.4-5.0); ALKALINE PHOSPHATASE 61 U/L (46-116); ALT (SGPT) 23 U/L (10-68); BILIRUBIN - TOTAL 0.68 mg/dL (0.2-1.3); CALC OSMOLALITY 278 mosm/kg (275-300); CALCIUM 8.3 mg/dL (8.5-10.1); CARBON DIOXIDE 24.6 mmol/L (21.0-32.0); CHLORIDE - SERUM 104 mmol/L (98-107); CREATININE - SERUM 1.3 mg/dL (0.6-1.3); GLUCOSE 115 mg/dL (74-106); POTASSIUM - SERUM 4.1 mmol/L (3.5-5.1); PROTEIN - SERUM 6.2 g/dL (6.4-8.2); SODIUM 138 mmol/L (136-145); UREA NITROGEN 17 mg/dL (7-18); eGFR NON AFRICAN AMERICAN 58 mL/min (90-120)
[2018-08-12 06:23] LABS: CKMB 1.3 U/L (0.0-3.6); CREATINE KINASE 59 UL (21-232); MAGNESIUM - SERUM 1.7 mg/dL (1.8-2.4)
[2018-08-12 06:24] LABS: TROPONIN-I < 0.017 ng/mL (0.000-0.060)
--- NOTE | 2018-08-12 07:08 | NUR ---
RECIEVED CARE OF PT, VSS
[2018-08-12 07:25] LABS: ANION GAP 13.2 mmol/L (8-16); CALCIUM 8.1 mg/dL (8.5-10.1); CARBON DIOXIDE 26.2 mmol/L (21.0-32.0); CREATININE - SERUM 1.3 mg/dL (0.6-1.3); POTASSIUM - SERUM 4.4 mmol/L (3.5-5.1)
--- NOTE | 2018-08-12 11:21 | NUR ---
ARRIVE BACK TO ROOM VIA BED FROM QUAD STAYER. SLEEPING. AROUSES TO STIMULI. FAMILY AT BEDSIDE. RT GROIN DRESSING CLEAN DRY INTACT. FREE FROM BLEEDING. FREE FROM HEMATOMA. PULSE +2 BILATERALLY. BP-183/87, HR-54 SINUS ANKUR, O2-95% RA. NOTIFY OF ELEVATED BLOOD PRESSURE. CONTINUE PLAN OF CARE AND SAFETY PRECAUTIONS.
--- NOTE | 2018-08-12 18:14 | NUR ---
SITTING UP IN BED. ALERT AND ORIENTED X4. RT GROIN DRESSING CLEAN DRY INTACT. FREE FROM BLEEDING. FREE FROM HEMATOMA. PULSE +2 BILATERALLY. DENIES ANY NEEDS. CONTINUE PLAN OF CARE AND SAFETY PRECAUTION.
--- NOTE | 2018-08-12 20:33 | NUR ---
REQUESTING B/S TO BE CHECK-246,
--- NOTE | 2018-08-13 01:08 | NUR ---
RECEIVED REPORT, WILL ASSUME CARE OF PT, PT AND ASKING ALOT OF QUESTIONS, CONCERNED ABOUT BP- WAS TOLD BY DAY NURSE THAT HE WAS OBS, AND INSURANCE WOUNT PAY FOR HIS HOME MEDS, SO BROUGHT HIS HOME MEDS, AND PT HAS ALREADY TAKEN HIS OWN MEDS, EXPLAINED WE WOULD KEEP HIM NPO, INCASE THEY NEEDED TO DO ANOTHER PROCEDURE IN AM, BED IS LOW, SRX2, CALL LIGHT IN REACH, WILL CONTINUE PLAN OF CARE
[2018-08-13 01:24] VITALS: BP 136/72
--- NOTE | 2018-08-13 04:56 | NUR ---
RESTING WITH NO DISTRESS. RESPS EVEN/NONLABORED. MONITOR AND CPOC.
[2018-08-13 05:02] VITALS: BP 142/74
--- NOTE | 2018-08-13 08:05 | NUR ---
REPORT RECEIVED. WILL CONTINUE WITH POC. PT CURRENTLY LYING SUPINE. CALL LIGHT W/I REACH. PT IS AAO AND UP AD MARGARET. PERIPHERAL PULSES EVEN AND BILATERAL. PT IS NPO FOR HEART CATH. RR EVEN AND UNLABORED ON RA. L.FOR PIV IS SALINE LOCKED. PT DENIES ANY NEEDS AT THIS TIME. WILL CTM.
[2018-08-13 09:52] LABS: BASOPHILS 0.5 % (0-2); EOSINOPHILS 1.5 % (0-7); HEMATOCRIT 37.9 % (42.0-54.0); HEMOGLOBIN 13.3 g/dL (13.5-17.5); IMMATURE GRANULOCYTES 0.3 % (0-5); LYMPHOCYTES 19.1 % (15-50); MCH 30.4 pg (26.0-34.0); MCHC 35.1 g/dL (31.0-37.0); MCV 86.5 fL (80.0-100.0); MEAN PLATELET VOLUME 12.4 fL (7.4-10.4); MONOCYTES 12.3 % (2-11); NEUTROPHILS 66.3 % (40-80); PLATELET COUNT 121 10x3/uL (130-400); RBC 4.38 10x6/uL (4.20-6.10); RDW 13.3 % (11.5-14.5); WBC 5.9 10x3/uL (4.8-10.8)
[2018-08-13 10:09] LABS: ANION GAP 14.1 mmol/L (8-16); CREATININE - SERUM 1.1 mg/dL (0.6-1.3); POTASSIUM - SERUM 4.1 mmol/L (3.5-5.1)
[2018-08-13] MEDS ORDERED: PLAVIX75 MG PO (10:57)
--- NOTE | 2018-08-13 11:05 | NUR ---
PATIENT AWAKE, EATING TURKEY SANDWICH AND DRINKING COFFEE. VSS ON ROOM AIR. LEFT GROIN DRESSING IS CDI, NO S/S OF BLEEDING OR HEMATOMA. FAMILY AT BEDSIDE.
--- NOTE | 2018-08-13 11:35 | NUR ---
PATIENT AWAKE, VSS ON ROOM AIR. LEFT GROIN DRESSING IS CDI, NO S/S OF BLEEDING OR HEMATOMA. NO C/O PAIN, NUMBNESS, OR TINGLING.
--- NOTE | 2018-08-13 12:05 | NUR ---
PATIENT RESTING, VSS ON ROOM AIR. LEFT GROIN DRESSING IS CDI, NO S/S OF BLEEDING OR HEMATOMA. NO C/O PAIN, NUMBNESS, OR TINGLING. NO N/V.
--- NOTE | 2018-08-13 12:06 | NUR ---
PRESCRIPTION FOR PLAVIX CALLED IN TO [facility] ON [address] PER REQUEST OF PATIENT.
--- NOTE | 2018-08-13 12:35 | NUR ---
PATIENT AWAKE, VSS ON ROOM AIR. LEFT GROIN DRESSING IS CDI, NO S/S OF BLEEDING OR HEMATOMA. NO C/O PAIN, NUMBNESS, OR TINGLING.
--- NOTE | 2018-08-13 13:05 | NUR ---
PATIENT AWAKE, VSS ON ROOM AIR. LEFT GROIN DRESSING IS CDI, NO S/S OF BLEEDING OR HEMATOMA.
--- NOTE | 2018-08-13 13:26 | NUR ---
REPORT AND CARE FROM EVANGELISTA HOOVER RN. PT IS ALERT, DENIES ANY C/O CHEST PAIN OR PRESSURE. NSR, RATE 82. PT HAS ATTEMPTED TO HAVE BM USING BEDPAN WITHOUT SUCCESS. STATES WANTS TO GET UP TO THE BATHROOM, INSTRUCTED PT HE IS ON BEDREST AT THIS TIME AND CAN TRY THE BEDPAN AGAIN IF HE WANTS TO AND PT DECLINES. HOB IS FLAT, CALL LIGHT IN REACH. PEDAL PULSES PALPABLE.
--- NOTE | 2018-08-13 13:45 | NUR ---
ASSISTED PT AGAIN WITH BEDAPN, PT PASSED LARGE AMOUNT OF GAS, NO BM, DRESSING REMAINS CDI TO RIGHT GROIN, AREA IS SOFT AND NONTENDER. PEDAL PULSES PALPABLE. HOB IS FLAT, DENIES ANY C/O AT THIS TIME.
--- NOTE | 2018-08-13 14:10 | NUR ---
DRESSING TO RIGHT GROIN REMAINS CDI, AREA IS SOFT AND NONTENDER. PEDAL PULSES PALPABLE. HOB ELEVATED 30 DEGREES, PT IS ALERT AND DENIES ANY C/O. NSR, RATE IS 61, BP IS 167/95. AT BEDSIDE, CALL LIGHT IN REACH.
[2018-08-13] MEDS ORDERED: PROTONIX40 MG PO (14:21)
[2018-08-13] MEDS ORDERED: GLUCOPHAGE500 MG PO (14:21)
[2018-08-13] MEDS ORDERED: CANDESARTAN PO (14:23)
[2018-08-13] MEDS ORDERED: CATAPRES0.1 MG PO (14:24)
--- NOTE | 2018-08-13 14:31 | NUR ---
DC INSTRUCTIONS REVIEWED WITH PT AND WHO VERBALIZE UNDERSTANDING. HOME MEDICATION LIST UPDATED, PT STATES HAS NOT HAD COPY OF LIST TO PROVIDE TO NURSE PRIOR TO NOW. PT VERBALIZES UNDERSTANDING OF DC INSTRUCTIONS. WRITTEN COPIES PROVIDED TO PT AND . HOB FULLY ELEVATED, DRESSING REMAINS CDI, PEDAL PULSES PALPABLE.
--- NOTE | 2018-08-13 14:48 | NUR ---
DRESSING REMAINS CDI, AREA IS SOFT AND NONTENDER. PEDAL PULSES PALPABLE. IV DC'D WITH CATH INTACT AND PT IS DRESSING FOR DC TO HOME.
--- NOTE | 2018-08-13 14:58 | NUR ---
PT HAS AMBULATED TO THE BATHROOM AND VOIDED QS. IS ALERT AND DENIES ANY C/O PAIN OR NAUSEA. DRESSING REMAINS CDI TO BILAT GROINS. PT ESCORTED TO PRIVATE AUTO VIAQ WC BY NURSE WITH DRIVING HIM HOME.
== END 2018-08-13 14:55 | disposition home or self-care (01) ==
LOC: D.ER 05:34 → D.M2 07:34 → D.EDHOLD 07:34 → OBSVTIME 07:34 → D.M2 08:23 → D.CLR 08-13 10:49
PROVIDERS: Emergency Medicine; ADMIT Internal Medicine Cardiovascular Disease
DX: I25.110 Atherosclerotic heart disease of native coronary artery with unstable angina pectoris (principal); I10 Essential (primary) hypertension; I48.0 Paroxysmal atrial fibrillation
CPT/HCPCS: 93459; C9600 ×2; C9604

== ENCOUNTER → 2019-02-28 13:02 | Outpatient (CLI) | payer MEDICARE, BC ==
[2018-08-12 10:58] VITALS: BMI 27.3
[~2019-02-28 13:02] MED LIST changes: +BAYER CHEWABLE81 MG PO; +CANDESARTAN PO; +CATAPRES0.1 MG PO; +PROTONIX40 MG PO
--- NOTE | 2019-03-04 08:39 | EC ---
PATIENT:OSMANY GALVEZ DATE OF SERVICE: 02/28/19 SEX: M MEDICAL RECORD: [id number] DATE OF : 48 LOCATION:D[facility] AGE OF PATIENT: 69 ADMISSION DATE: 02/28/19 REFERRING PHYSICIAN: INTERPRETING PHYSICIAN: DANIEL COOPER MD ECHOCARDIOGRAM REPORT ECHO CHARGES 4 ECHO COMPLETE Date: 02/28/19 CLINICAL DIAGNOSIS: DYSPNEA H/O HTN/CAD/A-FIB ECHOCARDIOGRAPHIC MEASUREMENTS (adult normal given) AC root (d.<3.7cm) 3.5 cm LV Septum d (<1.2 cm> 1.5 cm Valve Excursion 2.0 cm LV Septum (systole) 2.2 cm Left Atria (s.<4.0cm> 5.4 cm LVPW d(<1.2cm) 1.5 cm RV (d.<2.3cm) 3.4 cm LVPW (sytole) 2.2 cm LV diastole(<5.6CM) 5.7 cm MV E-F(>70mm/sec) cm LV systole 2.9 cm LVOT Diameter 2.0 cm MV exc.(>10mm) cm Est.ejection fraction (50-75%) % DOPPLER: LVIT cm/sec A 90.0 cm/sec E 63.0 cm/sec LA cm/sec RVSP 52.3 mmHg LVOT 91.0 cm/sec AOP1/2T m/s Asc. Ao 145 cm/sec RVOT 45.0 cm/sec RA cm/sec PA 107 cm/sec AV Gradient Peak 8.4 mmHg AV Mean 4.3 mmHg AV Area 1.9 cm MV Gradient Peak 3.9 mmHg MV Mean 1.3 mmHg MV Area cm COMMENTS: OP - HC Chief Crna: 1 FLORI ALEM Freight Associate: 3 Dr. Zuniga TAPE# PACS Pericardial Effusion N DATE OF SERVICE: 02/28/2019 Adequate 2D, color flow, spectral Doppler, and M-Mode. LVH is present. LV internal dimensions are normal. Wall motion is normal. EF is greater than or equal to 55%. Aortic valve sclerosis is without stenosis by Doppler interrogation. Left atrium is dilated 5.4 cm. Mitral valve shows no prolapse. Tlfb-hp-avsuaflr MR. Right-sided chambers are grossly normal. Moderate TR. ECHOCARDIOGRAM REPORT [id number] OSMANY GALVEZ TRANSINT:[id number] Voice Confirmation ID: [id number] DOCUMENT ID: [id number] DAINEL COOPER MD at 0839 CC: [id number] DICTATION DATE: 02/28/19 1616 CHARGE COORDINATOR: 03/01/19 0020 DEP CLI 02/28/19 [facility] [address] [place] [id number]
== END | disposition home or self-care (01) ==
LOC: D.HCCARDIO 13:02
PROVIDERS: ATTEND Internal Medicine Interventional Cardiology
DX: R06.00 Dyspnea, unspecified (principal); I10 Essential (primary) hypertension; I25.10 Atherosclerotic heart disease of native coronary artery without angina pectoris; I48.91 Unspecified atrial fibrillation